=== PATIENT | male | born 1980 | race Native Hawaiian/Other Pacific Islander ===

== ENCOUNTER 2017-01-26 18:19 | Emergency (ER) | payer MEDICARE ==
[~2017-01-26] VITALS: Ht 172.7 cm; Wt 65.8 kg
[2017-01-26 18:20] VITALS: BP 134/84
[2017-01-26] MEDS ORDERED: IBUPROFEN 600 MG TABLET PO ONE (19:09)
[2017-01-26] MEDS ORDERED: ONDANSETRON 4 MG TAB.RAPDIS ONE (19:10)
[2017-01-26] MEDS ORDERED: PENICILLIN G BENZATHINE 2.4 MMU/4 ML ML IM ONE (19:10)
[2017-01-26] MEDS: PENICILLIN G BENZATHINE 2.4 MMU/4 ML ML IM ONE (19:24)
[2017-01-26] MEDS: ONDANSETRON 4 MG TAB.RAPDIS SL ONE (19:24)
[2017-01-26] MEDS: IBUPROFEN 600 MG TABLET PO ONE (19:24)
== END 2017-01-26 19:35 | disposition home or self-care (01) ==
LOC: ER 18:22
DX: J02.9 Acute pharyngitis, unspecified (principal); F90.9 Attention-deficit hyperactivity disorder, unspecified type; F39 Unspecified mood [affective] disorder
CPT/HCPCS: 96372; 99283; A4606; J0558; Q0162; Z7610